=== PATIENT | male | born 1960 | race African-American/Black ===

== ENCOUNTER 2016-07-18 04:10 | Emergency (ER) | payer OTHER ==
[~2016-07-18] VITALS: Ht 188 cm; Wt 102.1 kg
[2016-07-18 04:13] VITALS: BP 157/104
[2016-07-18] MEDS ORDERED: cefTRIAXone SOD 1,000 MG VL IM ONE (07:45)
== END 2016-07-18 08:08 | disposition home or self-care (01) ==
LOC: ER 04:19
DX: H66.3X1 Other chronic suppurative otitis media, right ear (principal)
CPT/HCPCS: 96372; 99283; J0696